=== PATIENT | female | born 1945 | race Caucasian/White ===

== ENCOUNTER 2018-03-25 18:05 | Inpatient (IN) ==
--- NOTE | 2018-03-25 18:57 | ED.ABDFE ---
HPI Time Seen Time seen: 18:45 PCP Primary Care Physician: carmen witt HPI Comment HPI Comment: PATIENT SAID PAIN IS WORSE TODAY. PAIN DIFFUSE BUT WORSE IN LOWER ABDOMEN. HAVING FEVER, NAUSEATED FEELS WEAK. HISTORY DIVERTICULITIS. Complaint Doctors Chief Complaint Comments: ABDOMINAL PAIN TIMES 2 DAYS. Chief Complaint:: patient stated she has been having abd pain for 2 days. she stated she has a history of diverticulitis or ibs. Reviewed Nurses Notes Review: Yes Source History Provided: Patient Mode of arrival Mode of Arrival: Ambulatory Timing Onset of Chief Complaint: 03/23/18 Came on: Suddenly Duration Since Onset: Constant Duration: Days Location Location: Diffuse Severity Severity: Moderate Quality Quality: Cramping, Sharp and Generalized Context History of: Similar pain (dx) Modifying factors Worsening Factors: Nothing Improving Factors: Nothing Associated signs and symptoms Associated Signs and Symptoms: Nausea PMH PMH Past Medical History: Yes Past Medical History: Hypertension Past Surgical History: Yes Surgical History: Hysterectomy and Tonsillectomy Family History History of Family Medical Conditions: No Social History Does patient currently use any type of tobacco product: No Have you used tobacco products in the last 12 months: No Type of Tobacco Use: None Does any household member use tobacco: No Alcohol Use: None Do you use any recreational Drugs:: No Lives With: Family Lives Where: Home infectious screening In the last 2 months have you had wt loss of >10#?: NO Have you had fever, night sweats or hemotysis?: No Have you traveled outside the country in the last 6 months?: No Isolation: Standard ROS Review of Systems Constitutional: Fever Eyes: No Symptoms Reported ENTM: No Symptoms Reported Respiratoy: No Symptoms Reported Cardiovascular: No Symptoms Reported Gastrointestinal/Abdominal: Abdominal Pain and Nausea Genitourinary: No Symptoms Reported Neurological: No Symptoms Reported Musculoskeletal: No Symptoms Reported Integumentary: No Symptoms Reported Hematologic/Lymphatic: No Symptoms Reported Endocrine: No Symptoms Reported Psychiatric: No Symptoms Reported All Other Systems: Reviewed and Negative PE Vital Signs Vitals: Temperature 98.1 F Pulse Rate [Right Brachial] 64 Pulse Rate 99 Respiratory Rate 20 Blood Pressure [Right Arm] 126/58 Blood Pressure 144/78 O2 Sat by Pulse Oximetry 94 General Limitations: No Limitations and Language Barrier General Appearance: Alert and In No Apparent Distress Head Head Exam: Normal Inspection Eyes Eye exam: Normal Appearance ENT ENT Exam: Normal Exam Neck Neck Exam: Normal Inspection Chest Chest Inspection: Normal Inspection Respiratory Respiratory Exam: Normal Lung Sounds Bilat Respiratory Exam: Bilateral: Clear to Auscultation Cardiovascular Cardiovascular Exam: Regular Rate and Normal Rhythm Abdominal Exam Abdominal Exam: Normal Bowel Sounds, Soft and Tenderness Abdominal Tenderness: Diffuse Rectal Rectal Exam: Deferred Back Back Exam: Normal Inspection Extremeties Extremities Exam: Normal Inspection Neurologic Neurological Exam: Alert and Oriented X3 Psychiatric Psychiatric Exam: Normal Affect and Normal Mood Skin Skin Exam: Warm, Dry and Intact MDM Differential Diagnosis Differential Diagnosis- Considerations may include:: Bowel Obstruction, Diverticular disease, Gastritus/PUD, Urinary tract infection and Urolithiasis COURSE Treatment Treatment: SEE ORDERS. Education/Counseling Education/Counseling: Patient and Education Educated On: Diagnosis and Needs for Follow Up Education Comments: REPORT NOTED. ROR Labs Reviewed Result Diagrams: 03/27/18 04:34 03/27/18 04:34 Laboratory: WBC 6.0 X10^3/uL (3.6-10.0) 03/27/18 04:34 RBC 3.56 X10^6/uL (3.5-5.4) 03/27/18 04:34 Hgb 10.2 g/dL (12.0-16.0) L 03/27/18 04:34 Hct 29.9 % (36.0-47.0) L 03/27/18 04:34 MCV 84.0 fL (80.0-100.0) 03/27/18 04:34 MCH 28.7 pg (27.0-34.0) 03/27/18 04:34 MCHC 34.1 g/dL (33.0-35.0) 03/27/18 04:34 RDW 15.0 % (11.6-16.5) 03/27/18 04:34 Plt Count 250 X10^3/uL (150.0-450.0) 03/27/18 04:34 MPV 7.7 fL (7.4-11.0) 03/27/18 04:34 Neut % (Auto) 46.8 % (42.0-75.0) 03/27/18 04:34 Lymph % (Auto) 42.4 % (21.0-51.0) 03/27/18 04:34 [place] % (Auto) 7.8 % (0.0-13.0) 03/27/18 04:34 Eos % (Auto) 2.4 % (0.9-2.9) 03/27/18 04:34 Baso % (Auto) 0.6 % (0.2-1.0) 03/27/18 04:34 Neut # (Auto) 2.8 x10^3/uL (2.2-4.8) 03/27/18 04:34 Lymph # (Auto) 2.6 X10^3/uL (1.3-2.9) 03/27/18 04:34 [place] # (Auto) 0.5 x10^3/uL (0.3-0.8) 03/27/18 04:34 Eos # (Auto) 0.1 x10^3/uL (0.0-0.2) 03/27/18 04:34 Baso # (Auto) 0.0 X10^3/uL (0.0-0.1) 03/27/18 04:34 Absolute Nucleated RBC 0.0 /100WBC 03/27/18 04:34 Sodium 142 mmol/L (136-145) 03/27/18 04:34 Corrected Sodium 142 mmol/L (136-145) 03/27/18 04:34 Potassium 3.8 mmol/L (3.5-5.1) 03/27/18 04:34 Chloride 108 mmol/L (98-107) H 03/27/18 04:34 Carbon Dioxide 26.3 mmol/L (21-32) 03/27/18 04:34 BUN 7 mg/dL (7-18) 03/27/18 04:34 Creatinine 0.63 mg/dL (0.55-1.02) 03/27/18 04:34 Est GFR (MDRD) Af Amer > 60 (>60) 03/27/18 04:34 Est GFR (MDRD) Non-Af > 60 (>60) 03/27/18 04:34 Glucose 111 mg/dL (65-99) H 03/27/18 04:34 Calcium 8.1 mg/dL (8.5-10.1) L 03/27/18 04:34 Corrected Calcium 9.0 mg/dL (8.5-10.1) 03/27/18 04:34 Total Bilirubin 0.20 mg/dL (0.2-1.0) 03/27/18 04:34 AST 17 Units/L (15-37) 03/27/18 04:34 ALT 27 Units/L (12-78) 03/27/18 04:34 Alkaline Phosphatase 40 Units/L (46-116) L 03/27/18 04:34 Total Protein 5.6 g/dL (6.4-8.2) L 03/27/18 04:34 Albumin 2.9 g/dL (3.4-5.0) L 03/27/18 04:34 Globulin 2.7 g/dL (2.5-4.5) 03/27/18 04:34 Albumin/Globulin Ratio 1.1 Ratio (1.1-2.1) 03/27/18 04:34 Amylase 26 Units/L (25-115) 03/25/18 19:29 Lipase 75 Units/L (73-393) 03/25/18 19:29 Specimen Type Clean catch urine 03/25/18 19:12 Urine Color Yellow (YELLOW) 03/25/18 19:12 Urine Appearance Clear (CLEAR) 03/25/18 19:12 Urine pH 6.0 (5.0 - 8.0) 03/25/18 19:12 Ur Specific [place] 1.010 (1.000-1.030) 03/25/18 19:12 Urine Protein Negative (NEGATIVE) 03/25/18 19:12 Urine Glucose (UA) Negative (NEGATIVE) 03/25/18 19:12 Urine Ketones Negative (NEGATIVE) 03/25/18 19:12 Urine Occult Blood Negative (NEGATIVE) 03/25/18 19:12 Urine Nitrite Negative (NEGATIVE) 03/25/18 19:12 Urine Bilirubin Negative (NEGATIVE) 03/25/18 19:12 Urine Urobilinogen Normal (NORMAL) 03/25/18 19:12 Ur Leukocyte Esterase Negative (NEGATIVE) 03/25/18 19:12 EKG [place]: Normal Rhythm: NSR Block: None Hypertrophy: None ST: Normal Instructions Instructions: Diverticulitis, [id number] Hypertension, [id number] Forms: Patient Portal
[2018-03-25 19:25] LABS: BILIRUBIN,URINE NEGATIVE (NEGATIVE); BLOOD/HEMOGLOBIN,URINE NEGATIVE (NEGATIVE); GLUCOSE, URINE NEGATIVE (NEGATIVE); KETONES,URINE NEGATIVE (NEGATIVE); LEUKOCYTE ESTERASE ,URINE NEGATIVE (NEGATIVE); NITRITES,URINE NEGATIVE (NEGATIVE); PROTEIN,URINE NEGATIVE (NEGATIVE); UROBILINOGEN,URINE NORMAL (NORMAL)
[2018-03-25 19:26] LABS: APPEARANCE,URINE CLEAR (CLEAR); COLOR,URINE YELLOW (YELLOW)
[2018-03-25 19:35] LABS: BASOPHILS # (AUTO) 0.1 X10^3/uL (0.0-0.1); BASOPHILS % (AUTO) 0.8 % (0.2-1.0); EOSINOPHILS # (AUTO) 0.1 x10^3/uL (0.0-0.2); EOSINOPHILS % (AUTO) 0.8 % (0.9-2.9); HEMATOCRIT 37.2 % (36.0-47.0); HEMOGLOBIN 12.6 g/dL (12.0-16.0); LYMPHOCYTES # (AUTO) 2.7 X10^3/uL (1.3-2.9); LYMPHOCYTES % (AUTO) 22.5 % (21.0-51.0); MEAN CORPUSCULAR HEMOGLOBIN 28.5 pg (27.0-34.0); MEAN CORPUSCULAR HGB CONC 33.7 g/dL (33.0-35.0); MEAN CORPUSCULAR VOLUME 84.6 fL (80.0-100.0); MEAN PLATELET VOLUME 7.4 fL (7.4-11.0); MONOCYTES # (AUTO) 0.7 x10^3/uL (0.3-0.8); MONOCYTES % (AUTO) 6.1 % (0.0-13.0); NEUTROPHILS # (AUTO) 8.4 x10^3/uL (2.2-4.8); NEUTROPHILS % (AUTO) 69.8 % (42.0-75.0); PLATELET COUNT 346 X10^3/uL (150.0-450.0); RED CELL DISTRIBUTION WIDTH 15.3 % (11.6-16.5)
[2018-03-25 19:50] LABS: ALANINE AMINOTRANSFERASE 40 Units/L (12-78); ALBUMIN 4.1 g/dL (3.4-5.0); ALKALINE PHOSPHATASE 57 Units/L (46-116); AMYLASE 26 Units/L (25-115); ASPARTATE AMINO TRANSFERASE 26 Units/L (15-37); BLOOD UREA NITROGEN 11 mg/dL (7-18); CALCIUM 9.6 mg/dL (8.5-10.1); CARBON DIOXIDE 30.6 mmol/L (21-32); CHLORIDE 100 mmol/L (98-107); COR NA(FOR HYPERGLY) 138 mmol/L (136-145); CREATININE 0.79 mg/dL (0.55-1.02); LIPASE 75 Units/L (73-393); SODIUM 138 mmol/L (136-145); TOTAL PROTEIN 7.5 g/dL (6.4-8.2); eGFR NON BLACK RACES > 60 (>60)
--- NOTE | 2018-03-25 20:06 | CT ---
Indication: Pain Exam: CT abdomen and pelvis without contrast. Technique: Axial spiral images were obtained from lung bases through the pubic symphysis without cont rast. Automated dose control was utilized. Findings: The lung bases are clear. The liver is borderline enlarged with fatty replacement throughou t. No focal lesion is seen. The gallbladder, pancreas and bile ducts are normal the spleen is unremar kable. The adrenals are normal . The kidneys are normal size with a 3 mm stone along the mid polar re gion on the right . No hydronephrosis is seen. There is a 1.2 cm cyst along the mid polar region on t he left. No hydronephrosis is seen. The ureters are normal caliber. The appendix is normal. There are numerous diverticula throughout the left colon which are more prominent inferiorly with moderate cir cumferential mucosal thickening along the proximal sigmoid colon with moderate stranding extending in to the surrounding colonic mesentery and extending inferiorly with no focal fluid collection or mass seen. The bladder is unremarkable. The uterus has been removed with no adnexal mass or free fluid. Th ere is a small 1.4 cm umbilical hernia with no bowel loops in the hernia. The bones are intact. No ag gressive osseous lesion is seen. Impression: Short segmental area of moderate diverticulitis along the proximal sigmoid colon with no pericolonic abscess or fluid collection. Recommend a follow-up barium enema or endoscopy after the patient's symp toms resolve. Moderate diverticulosis throughout the left colon which is most prominent along the sigmoid region. Small right renal stone with no hydronephrosis and no CT evidence of urinary obstruction . Mild hepatomegaly and fatty replacement throughout . Status post hysterectomy with no pelvic mass . Reported By:
[2018-03-25] MEDS ORDERED: CIPRO TAB 500 MG PO ONE (21:04)
[2018-03-25] MEDS ORDERED: FLAGYL TAB 500 MG PO ONE (21:05)
[2018-03-25] MEDS ORDERED: ZOFRAN INJ 4 MG VIAL IVP ONE (21:09)
[2018-03-25] MEDS ORDERED: FLAGYL IV PREMIX 500 MG BAG 500 MG/100 ML BAG IV ONE ×2 (21:09→21:28)
[2018-03-25] MEDS ORDERED: TORADOL 30 MG VIAL IVP ONE (21:14)
[2018-03-25] MEDS ORDERED: PEPCID 20 MG IV PREMIX* 20 MG/50 ML BAG IV ONE ×2 (21:15→21:28)
[2018-03-25] MEDS ORDERED: NS 1000 ML 1,000 ML ONE (21:28)
[2018-03-25] MEDS ORDERED: ZOFRAN INJ 4 MG VIAL ONE (21:29)
[2018-03-25] MEDS ORDERED: TORADOL 30 MG VIAL ONE (21:37)
[2018-03-25] MEDS ORDERED: ZOFRAN INJ 4 MG VIAL IVP PRN (23:41)
[2018-03-25] MEDS ORDERED: PEPCID 20 MG IV PREMIX* 20 MG/50 ML BAG IV PRN (23:41)
[2018-03-26] MEDS: NS 1000 ML 1,000 ML IV SCH ×2 (00:30→15:53)
[2018-03-26 02:29] VITALS: BMI 28.7
[2018-03-26] MEDS: FLAGYL IV PREMIX 500 MG BAG 500 MG/100 ML BAG IV SCH ×4 (04:00→21:04)
[2018-03-26 05:21] LABS: BASOPHILS # (AUTO) 0.1 X10^3/uL (0.0-0.1); BASOPHILS % (AUTO) 1.1 % (0.2-1.0); EOSINOPHILS # (AUTO) 0.1 x10^3/uL (0.0-0.2); EOSINOPHILS % (AUTO) 1.1 % (0.9-2.9); HEMATOCRIT 32.1 % (36.0-47.0); HEMOGLOBIN 10.9 g/dL (12.0-16.0); LYMPHOCYTES # (AUTO) 2.8 X10^3/uL (1.3-2.9); LYMPHOCYTES % (AUTO) 34.2 % (21.0-51.0); MEAN CORPUSCULAR HEMOGLOBIN 28.8 pg (27.0-34.0); MEAN CORPUSCULAR HGB CONC 34.1 g/dL (33.0-35.0); MEAN CORPUSCULAR VOLUME 84.5 fL (80.0-100.0); MEAN PLATELET VOLUME 7.5 fL (7.4-11.0); MONOCYTES # (AUTO) 0.6 x10^3/uL (0.3-0.8); MONOCYTES % (AUTO) 7.5 % (0.0-13.0); NEUTROPHILS # (AUTO) 4.5 x10^3/uL (2.2-4.8); NEUTROPHILS % (AUTO) 56.1 % (42.0-75.0); PLATELET COUNT 273 X10^3/uL (150.0-450.0); RED BLOOD COUNT 3.79 X10^6/uL (3.5-5.4); RED CELL DISTRIBUTION WIDTH 15.3 % (11.6-16.5); WHITE BLOOD COUNT 8.1 X10^3/uL (3.6-10.0)
[2018-03-26 05:26] LABS: ALANINE AMINOTRANSFERASE 32 Units/L (12-78); ALBUMIN 3.3 g/dL (3.4-5.0); ALKALINE PHOSPHATASE 48 Units/L (46-116); ASPARTATE AMINO TRANSFERASE 17 Units/L (15-37); BLOOD UREA NITROGEN 12 mg/dL (7-18); CALCIUM 8.8 mg/dL (8.5-10.1); CARBON DIOXIDE 30.9 mmol/L (21-32); CHLORIDE 104 mmol/L (98-107); COR CA(FOR HYPOALB) 9.4 mg/dL (8.5-10.1); COR NA(FOR HYPERGLY) 142 mmol/L (136-145); CREATININE 0.79 mg/dL (0.55-1.02); SODIUM 141 mmol/L (136-145); TOTAL PROTEIN 6.4 g/dL (6.4-8.2); eGFR NON BLACK RACES > 60 (>60)
[2018-03-26] MEDS: CIPRO IV 200 MG PREMIX* 200 MG/100 ML BAG IV SCH ×2 (08:35→21:03)
[2018-03-26] MEDS ORDERED: ATIVAN TAB 0.5 MG PO PRN (09:56)
[2018-03-26] MEDS ORDERED: ASPIRIN EC 81 MG PO SCH (10:00)
[2018-03-26] MEDS: WELLBUTRIN XL 150 MG (DAILY) PO SCH (10:10)
[2018-03-26] MEDS ORDERED: LEXAPRO ONE (10:30)
[2018-03-26] MEDS: LEXAPRO PO SCH (10:32)
[2018-03-26] MEDS: FLONASE NASAL SPRAY ENOSTRIL SCH (10:32)
[2018-03-26] MEDS: INDERAL TAB 10 MG PO SCH ×2 (11:01→21:02)
[2018-03-27 05:28] LABS: BASOPHILS % (AUTO) 0.6 % (0.2-1.0); EOSINOPHILS # (AUTO) 0.1 x10^3/uL (0.0-0.2); EOSINOPHILS % (AUTO) 2.4 % (0.9-2.9); HEMATOCRIT 29.9 % (36.0-47.0); HEMOGLOBIN 10.2 g/dL (12.0-16.0); LYMPHOCYTES # (AUTO) 2.6 X10^3/uL (1.3-2.9); LYMPHOCYTES % (AUTO) 42.4 % (21.0-51.0); MEAN CORPUSCULAR HEMOGLOBIN 28.7 pg (27.0-34.0); MEAN CORPUSCULAR HGB CONC 34.1 g/dL (33.0-35.0); MEAN PLATELET VOLUME 7.7 fL (7.4-11.0); MONOCYTES # (AUTO) 0.5 x10^3/uL (0.3-0.8); MONOCYTES % (AUTO) 7.8 % (0.0-13.0); NEUTROPHILS # (AUTO) 2.8 x10^3/uL (2.2-4.8); NEUTROPHILS % (AUTO) 46.8 % (42.0-75.0); PLATELET COUNT 250 X10^3/uL (150.0-450.0); RED BLOOD COUNT 3.56 X10^6/uL (3.5-5.4)
[2018-03-27 05:35] LABS: ALANINE AMINOTRANSFERASE 27 Units/L (12-78); ALBUMIN 2.9 g/dL (3.4-5.0); ALKALINE PHOSPHATASE 40 Units/L (46-116); ASPARTATE AMINO TRANSFERASE 17 Units/L (15-37); BLOOD UREA NITROGEN 7 mg/dL (7-18); CALCIUM 8.1 mg/dL (8.5-10.1); CARBON DIOXIDE 26.3 mmol/L (21-32); CHLORIDE 108 mmol/L (98-107); COR NA(FOR HYPERGLY) 142 mmol/L (136-145); CREATININE 0.63 mg/dL (0.55-1.02); SODIUM 142 mmol/L (136-145); TOTAL PROTEIN 5.6 g/dL (6.4-8.2); eGFR NON BLACK RACES > 60 (>60)
[2018-03-27 08:01] VITALS: BP 126/58
[2018-03-27] MEDS ORDERED: LEXAPRO ONE (08:17)
[2018-03-27] MEDS: CIPRO IV 200 MG PREMIX* 200 MG/100 ML BAG IV SCH (09:28)
[2018-03-27] MEDS: LEXAPRO PO SCH (09:28)
[2018-03-27] MEDS: INDERAL TAB 10 MG PO SCH (09:28)
[2018-03-27] MEDS: FLONASE NASAL SPRAY ENOSTRIL SCH (09:28)
[2018-03-27] MEDS: FLAGYL IV PREMIX 500 MG BAG 500 MG/100 ML BAG IV SCH (09:28)
[2018-03-27] MEDS: WELLBUTRIN XL 150 MG (DAILY) PO SCH (09:28)
[2018-03-27] MEDS ORDERED: ASPIRIN EC 81 MG PO SCH (11:00)
== END 2018-03-27 11:45 | disposition home or self-care (01) | DRG 392 ==
LOC: ER 18:05 → MED/SURG 22:58
PROVIDERS: ADMIT Obstetrics & Gynecology Obstetrics; ATTEND Obstetrics & Gynecology Obstetrics
DX: K57.92 Diverticulitis of intestine, part unspecified, without perforation or abscess without bleeding; K58.8 Other irritable bowel syndrome; I10 Essential (primary) hypertension; R10.84 Generalized abdominal pain; F41.8 Other specified anxiety disorders
CPT/HCPCS: 36415; 74176; 80053; 81003; 82150; 83690; 85025; 96365; 96367; 96374; 96375; 99283; 99284; A4222; S0028; S0030; S0106; J0744; J1885; J2405; J7030